=== PATIENT | male | born 2000 ===

== ENCOUNTER → 2025-08-01 | Outpatient (CLI) | payer OTHER ==
[2025-08-01 20:40] LABS: Thyroid Stimulating Hormone 3.53 uIU/mL (0.360-4.800)
[2025-08-01 20:41] LABS: Total Protein, Blood 7.6 g/dL (6.4-8.2)
[2025-08-04 07:22] LABS: HEPATITIS C AB CIA INTERP Negative (Negative); HEPATITIS C ANTIBODY CIA INDEX 0.05 IV
[2025-08-04 07:38] LABS: ANTI-NUCLEAR AB ANA,IGG ELISA None Detected (None Detected)
[2025-08-04 10:59] LABS: HIV 1,2 COMBO ANTIGEN/ANTIBODY Negative (Negative)
== END ==
LOC: LAB SHORT 18:41 → LAB 18:41
PROVIDERS: Student in an Organized Health Care Education/Training Program
DX: G62.9 Polyneuropathy, unspecified (principal); Z11.4 Encounter for screening for human immunodeficiency virus [HIV]; Z11.59 Encounter for screening for other viral diseases; Z13.1 Encounter for screening for diabetes mellitus
CPT/HCPCS: 82607; 82746; 83036; 84155; 84443; 85651; 86037; 86038; 86803; 87389